=== PATIENT | female | born 1950 | race Caucasian/White ===

== ENCOUNTER → 2016-11-08 | Outpatient (CLI) | payer OTHER ==
[~2016-11-08] MED LIST: ASPI-586 PO; AZTH250C PO; LVT.05T PO; MELO7.5T PO; MULT-301 PO; TRM50T PO; VITIMIN D
--- NOTE | 2016-11-08 13:59 | Diagnostic Imaging Report ---
INDICATION: Bronchitis, chronic cough has progressively worsened over the last year. COMPARISON STUDY: Chest from 07/06/2014. FINDINGS: Frontal and lateral views of the chest are unchanged. The lungs are clear. The heart size and vascularity are normal. Mild degenerative changes are present in the spine. IMPRESSION: There are no acute findings. Dictated by: Dictated on workstation # [id number]
== END ==
LOC: RAD 13:26
PROVIDERS: ATTEND Family Medicine
DX: J41.8 Mixed simple and mucopurulent chronic bronchitis (principal)
CPT/HCPCS: 71020